=== PATIENT | female | born 1985 | race American Indian/Alaskan Native ===

== ENCOUNTER 2018-03-19 08:11 | Emergency (ER) | payer SELFPAY ==
[2018-03-19 08:23] VITALS: BP 127/85
[2018-03-19 08:46] LABS: Basophils % (Auto) 0.4 % (0.0-1.8); Eosinophils % (Auto) 0.4 % (0.0-4.3); Hematocrit 36.4 % (30.3-42.9); Hemoglobin 11.8 gm/dl (10.1-14.3); Lymphocytes # (Auto) 0.4 K/mm3 (1.2-5.4); Lymphocytes % (Auto) 12.6 % (13.4-35.0); Mean Corpuscular HGB Conc 33 % (30-34); Mean Corpuscular Hemoglobin 27 pg (28-32); Mean Corpuscular Volume 84 fl (79-97); Monocytes % (Auto) 0.4 % (0.0-7.3); Platelet Count 315 K/mm3 (140-440); Red Blood Count 4.32 M/mm3 (3.65-5.03); Red Cell Distribution Width 18.8 % (13.2-15.2)
[2018-03-19] MEDS ORDERED: ZOFRAN ODT ONE (08:55)
[2018-03-19 09:00] LABS: Alanine Aminotransferase 7 units/L (7-56); Albumin 3.7 g/dL (3.9-5); BUN/Creatinine Ratio 27; Blood Urea Nitrogen 16 mg/dL (7-17); Calcium 8.9 mg/dL (8.4-10.2); Hemolysis Index 10
[2018-03-19] MEDS ORDERED: ZOFRAN ODT PO ONE (09:00)
[2018-03-19 09:32] LABS: Bilirubin,Urine NEG (Negative); Blood,Urine NEG (Negative); Color,Urine Yellow (Yellow); Protein,Urine <15 mg/dL mg/dL (Negative); Urobilinogen,Urine < 2.0 mg/dL (<2.0)
[2018-03-19 09:34] LABS: HCG Qualitative,Urine Negative (Negative)
[2018-03-19] MEDS ORDERED: ZOFRAN IV ONE (10:01)
[2018-03-19] MEDS ORDERED: NACL 0.9% 1000 ML 1,000 ML IV ONE (10:01)
--- NOTE | 2018-03-19 10:03 | Emergency Department Report ---
Chief Complaint: Abdominal Pain Stated Complaint: FLU LIKE SYMPTOMS Time Seen by Provider: 03/19/18 09:41 - HPI History of Present Illness: 32-year-old female presents to the emergency department with a complaint of one to 2 days of abdominal cramping, body aches, nausea and vomiting. She just started her menstrual cycle yesterday. She took a Plan B pill on 02/28/18. She denies any fever, vaginal discharge, dysuria, chest pain or shortness of breath. Patient says that she works out "a lot." - ROS Review of Systems: Positive for body aches, abdominal cramping, vaginal bleeding, nausea and vomiting Negative for fever, chest pain, shortness of breath - Exam Vital Signs: Vital Signs 03/19/18 03/19/18 08:20 09:41 Temperature 98.9 F Pulse Rate 116 H Respiratory 16 16 Rate Blood Pressure 127/85 O2 Sat by Pulse 99 Oximetry Physical Exam: Patient appears slightly uncomfortable but in no acute distress. Heart and lung sounds are normal to auscultation. Normal bowel sounds. MSE screening note: Focused history and physical exam performed. Due to findings the following was ordered: Her CBC, BMP and urinalysis appear unremarkable. The patient is not . We'll add a CK level. She will get an IV, IV fluid, IV Zofran and we'll reevaluate. ED Medical Decision Making - Lab Data Result diagrams: 03/19/18 08:30 03/19/18 08:30 ED Disposition for MSE Condition: Stable Instructions: Abdominal Pain (ED) Referrals: PRIMARY CARE, [Primary Care Provider] - 3-5 Days
[2018-03-19] MEDS ORDERED: TORADOL IV ONE (10:50)
--- NOTE | 2018-03-19 10:57 | Emergency Department Report ---
ED Abdominal Pain HPI - General Chief Complaint: Abdominal Pain Stated Complaint: FLU LIKE SYMPTOMS Time Seen by Provider: 03/19/18 09:41 Source: patient Mode of arrival: Ambulatory Limitations: No Limitations - History of Present Illness Initial Comments: This is a 32-year-old female nontoxic, well nourished in appearance, no acute signs of distress presents to the ED with c/o of abdominal pain, body aches, nausea, and vomiting x1 day. Patient stated she is currently on her menstrual cycle. Patient describes abdominal pain as cramping diffusely. Patient stated had 1 episode of vomiting and was food content. Patient stated she took a Plan B pll on 02/28/2018. Patient denies any fever, chills, vaginal bleeding, vaginal discharge, urinary symptoms, chest pain, shortness of breathe, radiation of pain. Patient denies any allergies or PMH. MD Complaint: abdominal pain -: This morning Location: diffuse Radiation: none Migration to: no migration Severity: mild Severity scale (0 -10): 3 Quality: cramping Consistency: constant Improves With: nothing Worsens With: nothing Associated Symptoms: nausea, vomiting. denies: diarrhea, fever, chills, constipation, dysuria, hematemesis, hematochezia, melena, hematuria, anorexia, syncope - Related Data Previous Rx's Medication Instructions Recorded Last Taken Type Ibuprofen [Motrin] 600 mg PO Q8H PRN #30 tablet 03/19/18 Unknown Rx Ondansetron [Zofran Odt] 4 mg PO Q8H PRN #20 tab.rapdis 03/19/18 Unknown Rx Allergies Allergy/AdvReac Type Severity Reaction Status Date / Time No Known Allergies Allergy Unverified 03/19/18 08:23 ED Review of Systems ROS: Stated complaint: FLU LIKE SYMPTOMS Other details as noted in HPI Constitutional: denies: chills, fever Eyes: denies: eye pain, eye discharge, vision change ENT: denies: ear pain, throat pain Respiratory: denies: cough, shortness of breath, wheezing Cardiovascular: denies: chest pain, palpitations Endocrine: no symptoms reported Gastrointestinal: abdominal pain, nausea, vomiting. denies: diarrhea, constipation Genitourinary: denies: urgency, dysuria, discharge Musculoskeletal: denies: back pain, joint swelling, arthralgia Skin: denies: rash, lesions Neurological: denies: headache, weakness, paresthesias Psychiatric: denies: anxiety, depression Hematological/Lymphatic: denies: easy bleeding, easy bruising ED Past Medical Hx - Past Medical History Previous Medical History?: No - Surgical History Past Surgical History?: No - Social History Smoking Status: Never Smoker Substance Use Type: None - Medications Home Medications: Home Medications Medication Instructions Recorded Confirmed Last Taken Type Ibuprofen [Motrin] 600 mg PO Q8H PRN #30 tablet 03/19/18 Unknown Rx Ondansetron [Zofran Odt] 4 mg PO Q8H PRN #20 tab.rapdis 03/19/18 Unknown Rx ED Physical Exam - General Limitations: No Limitations General appearance: alert, in no apparent distress - Head Head exam: Present: atraumatic, normocephalic - Eye Eye exam: Present: normal appearance Pupils: Present: normal accommodation - ENT ENT exam: Present: normal exam, mucous membranes moist - Neck Neck exam: Present: normal inspection, full ROM. Absent: tenderness, meningismus, lymphadenopathy - Respiratory Respiratory exam: Present: normal lung sounds bilaterally. Absent: respiratory distress, wheezes, rales, rhonchi, stridor, chest wall tenderness, accessory muscle use, decreased breath sounds, prolonged expiratory - Cardiovascular Cardiovascular Exam: Present: regular rate, normal rhythm, normal heart sounds. Absent: systolic murmur, diastolic murmur, rubs, gallop - GI/Abdominal GI/Abdominal exam: Present: soft, tenderness (diffuse), normal bowel sounds. Absent: distended, guarding, rebound, rigid, diminished bowel sounds - Expanded GI/Abdominal Exam Expanded GI/Abdominal exam: Absent: psoas sign, obturator sign, heel tap sign, Nazario's sign, Rovsing's sign, tenderness at Mcburney's Point, ascites - Rectal Rectal exam: Present: deferred - Extremities Exam Extremities exam: Present: normal inspection, full ROM, normal capillary refill - Back Exam Back exam: Present: normal inspection, full ROM. Absent: tenderness, CVA tenderness (R), CVA tenderness (L), paraspinal tenderness, vertebral tenderness - Neurological Exam Neurological exam: Present: alert, oriented X3, normal gait - Psychiatric Psychiatric exam: Present: normal affect, normal mood - Skin Skin exam: Present: warm, dry, intact, normal color. Absent: rash ED Course Vital Signs 03/19/18 03/19/18 08:20 09:41 Temperature 98.9 F Pulse Rate 116 H Respiratory 16 16 Rate Blood Pressure 127/85 O2 Sat by Pulse 99 Oximetry - Reevaluation(s) Reevaluation #1: 03/19/18 10:56 Patient is speaking in full sentences with no signs of distress noted. - Consultations Consultation #1: 03/19/18 10:56 Patient has been consulted with Dr. Darling about patient history, physical exam, and labs and examined and screened patient and agrees to ED plan of care and discharge plan of care. ED Medical Decision Making - Lab Data Result diagrams: 03/19/18 08:30 03/19/18 08:30 - Medical Decision Making This is a 32-year-old female that presents with abdominal pain and nausea vomiting. Patient pain is most likely related to menstrual cycle. Patient stable was examined by me and Dr. Darling. After medical treatment with toradol, patient denies any abdominal pain. No rebound tenderness. Labs and UA obtained and are unremarkable. Patient received 1L of normal saline and zofran which patient stated symptoms has resolved and subsided. A by mouth challenge of apple juice had been obtained and patient tolerated well with no nausea vomiting. Patient discharged with Zofran and Motrin. Patient was instructed to increase hydration. Patient was referred to Follow-up with a primary care doctor in 3-5 days or if symptoms worsen and continue return to emergency room as soon as possible. At time of discharge, the patient does not seem toxic or ill in appearance. No acute signs of distress noted. Patient agrees to discharge treatment plan of care. No further questions noted by the patient. Critical care attestation.: If time is entered above; I have spent that time in minutes in the direct care of this critically ill patient, excluding procedure time. ED Disposition Clinical Impression: Nausea & vomiting Qualifiers: Vomiting type: unspecified Vomiting Intractability: non-intractable Qualified Code(s): R11.2 - Nausea with vomiting, unspecified Abdominal pain Qualifiers: Abdominal location: generalized Qualified Code(s): R10.84 - Generalized abdominal pain Disposition: DC-01 TO HOME OR SELFCARE Is pt being admited?: No Does the pt Need Aspirin: No Condition: Stable Instructions: Abdominal Pain (ED), Acute Nausea and Vomiting (ED) Additional Instructions: Follow-up with a primary care doctor in 3-5 days or if symptoms worsen and continue return to emergency room as soon as possible. Prescriptions: Ibuprofen [Motrin] 600 mg PO Q8H PRN #30 tablet PRN Reason: Pain Ondansetron [Zofran Odt] 4 mg PO Q8H PRN #20 tab.rapdis PRN Reason: Nausea Referrals: PRIMARY CARE,MD [Primary Care Provider] - 3-5 Days MONICA RICO MD [Staff Physician] - 3-5 Days [facility] [Outside] - 3-5 Days [facility] [Outside] - 3-5 Days Forms: Work/School Release Form(ED)
== END 2018-03-19 11:30 | disposition home or self-care (01) ==
LOC: ED 08:11
DX: R11.2 Nausea with vomiting, unspecified (principal); R10.84 Generalized abdominal pain
CPT/HCPCS: 36415; 80053; 81001; 81025; 82550; 85025; 96361; 96374; 96375; 99283; J1885; J2405; J7030; Q0162